=== PATIENT | female | born 1980 | race Two or more races ===

== ENCOUNTER 2018-12-26 10:05 | Outpatient (CLI) | payer OTHER | END 2018-12-26 11:30 | disposition home or self-care (01) | LOC: PRENATAL 10:05 | DX: O99.89 Other specified diseases and conditions complicating pregnancy, childbirth and the puerperium (principal); O09.511 Supervision of elderly primigravida, first trimester; O98.911 Unspecified maternal infectious and parasitic disease complicating pregnancy, first trimester ==

== ENCOUNTER → 2019-02-11 | Outpatient (CLI) | payer OTHER | END | disposition home or self-care (01) | LOC: PRENATAL 10:30 | DX: O99.89 Other specified diseases and conditions complicating pregnancy, childbirth and the puerperium (principal); O09.512 Supervision of elderly primigravida, second trimester; O35.3XX0 Maternal care for (suspected) damage to fetus from viral disease in mother, not applicable or unspecified ==

== ENCOUNTER 2019-03-26 20:32 | Outpatient (CLI) | payer OTHER | END 2019-03-27 14:43 | disposition home or self-care (01) | LOC: OBS/DEL 20:32 | DX: O26.893 Other specified pregnancy related conditions, third trimester (principal); R10.2 Pelvic and perineal pain; O99.213 Obesity complicating pregnancy, third trimester; O35.3XX1 Maternal care for (suspected) damage to fetus from viral disease in mother, fetus 1 ==

== ENCOUNTER → 2019-05-21 | Outpatient (CLI) | payer OTHER | END | disposition home or self-care (01) | LOC: PRENATAL 13:46 | DX: O26.849 Uterine size-date discrepancy, unspecified trimester (principal); O35.0XX0 Maternal care for (suspected) central nervous system malformation in fetus, not applicable or unspecified; O99.89 Other specified diseases and conditions complicating pregnancy, childbirth and the puerperium; O09.519 Supervision of elderly primigravida, unspecified trimester; Z3A.32 32 weeks gestation of pregnancy ==

== ENCOUNTER 2019-06-17 12:15 | Inpatient (IN) | payer OTHER ==
[~2019-06-17] VITALS: Ht 160 cm; Wt 77.1 kg
[2019-06-29] MEDS ORDERED: PRENATAL TABLE1 EAC1 PO (07:54)
== END 2019-07-03 18:57 | disposition home or self-care (01) | DRG 788 ==
LOC: LDR 06-29 06:53 → OB/GYN 06-30 19:34
PROVIDERS: Obstetrics & Gynecology; ADMIT Obstetrics & Gynecology
PROC: 10907ZC Drainage of Amniotic Fluid, Therapeutic from Products of Conception, Via Natural or Artificial Opening (ICD-10-PCS; 2019-06-29)
PROC: 3E0P7VZ Introduction of Hormone into Female Reproductive, Via Natural or Artificial Opening (ICD-10-PCS; 2019-06-29)
PROC: 3E033VJ Introduction of Other Hormone into Peripheral Vein, Percutaneous Approach (ICD-10-PCS; 2019-06-29)
PROC: 4A1HXCZ Monitoring of Products of Conception, Cardiac Rate, External Approach (ICD-10-PCS; 2019-06-29)
PROC: 10D00Z1 Extraction of Products of Conception, Low, Open Approach (ICD-10-PCS; principal; 2019-06-30 18:00)
DX: O61.0 Failed medical induction of labor (principal); O14.05 Mild to moderate pre-eclampsia, complicating the puerperium; Z3A.38 38 weeks gestation of pregnancy; Z37.0 Single live birth